=== PATIENT | female | born 1995 | race Caucasian/White ===

== ENCOUNTER 2016-09-17 14:10 | Emergency (ER) | payer OTHER, BC ==
[~2016-09-17] VITALS: Ht 170.2 cm; Wt 65.8 kg
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
[2016-09-17] MEDS ORDERED: HYDROcodone/APAP 5 MG/325 MG (LORTAB) TAB PO ONE (15:45)
[2016-09-17] MEDS ORDERED: HYDR-3812 PO (15:50)
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
[2016-09-17 15:58] VITALS: BP 130/84
== END 2016-09-17 15:58 | disposition home or self-care (01) ==
LOC: ER 14:18
DX: S52.502A Unspecified fracture of the lower end of left radius, initial encounter for closed fracture (principal); V43.52XA Car driver injured in collision with other type car in traffic accident, initial encounter; Y92.414 Local residential or business street as the place of occurrence of the external cause; Y99.8 Other external cause status
CPT/HCPCS: 29125; 73110